=== PATIENT | female | born 1980 | race Hispanic/Latino ===

== ENCOUNTER 2020-02-23 14:43 | Emergency (ER) | payer SELFPAY ==
[2020-02-23] MEDS ORDERED: ALBUTEROL INHALER 90MCG/INH IH ONE (15:18)
[2020-02-23] MEDS ORDERED: ACETAMINOPHEN-CODEINE 300/30MG TAB ONE (15:19)
[2020-02-23] MEDS ORDERED: ONDANSETRON ODT 4 MG TAB ONE (15:19)
[2020-02-23] MEDS ORDERED: CYCLOBENZAPRINE HCL 10 MG TABLET ONE (15:22)
== END 2020-02-23 16:15 | disposition home or self-care (01) ==
LOC: EDH 14:43
DX: U07.1 COVID-19 (principal); I10 Essential (primary) hypertension; Z87.891 Personal history of nicotine dependence
CPT/HCPCS: 71045; 87426; 93005

== ENCOUNTER 2020-03-06 23:12 | Emergency (ER) | payer OTHER, SELFPAY ==
[2020-03-06 23:56] LABS: BASOPHILS % (AUTO) 0.2 % (0.0-5.0); EOSINOPHILS % (AUTO) 0.5 % (0.0-8.0); HEMATOCRIT 41.5 % (36-48); LYMPHOCYTES % (AUTO) 19.3 % (21.0-51.0); MEAN CORPUSCULAR HEMOGLOBIN 28.3 pg (27.0-33.0); MEAN CORPUSCULAR HGB CONC 32.8 g/dL (32.0-36.0); MEAN CORPUSCULAR VOLUME 86.3 fL (79-99); NEUTROPHILS % (AUTO) 73.7 % (40.0-77.0); PLATELET COUNT (AUTO) 403 K/uL (130-400); RED BLOOD CELL COUNT(AUTO) 4.81 MIL/uL (4.00-5.50); RED CELL DISTRIBUTION WIDTH 13.5 % (11.0-15.5); WHITE BLOOD COUNT (AUTO) 9.5 K/uL (4.8-10.8)
[2020-03-07 00:08] LABS: POTASSIUM 4.1 mmol/L (3.5-5.1)
[2020-03-07 00:14] LABS: ALBUMIN 3.2 g/dL (3.5-5.0); BILIRUBIN,TOTAL 0.5 mg/dL (0.2-1.0); TOTAL PROTEIN, SERUM 8.6 g/dL (6.0-8.3)
[2020-03-07 00:18] LABS: APPEARANCE,URINE Clear (CLEAR); BILIRUBIN,URINE Negative (NEGATIVE); COLOR,URINE Yellow (YELLOW); GLUCOSE, URINE (UA) Negative (NEGATIVE); KETONES,URINE Trace mg/dL (NEGATIVE); LEUKOCYTE ESTERASE ,URINE Small (NEGATIVE); NITRATE,URINE Positive (NEGATIVE); OCCULT BLOOD,URINE Negative (NEGATIVE); PH,URINE 5.5 (5.0-8.0); PROTEIN,URINE POS 1+ mg/dL (NEGATIVE)
[2020-03-07 00:44] LABS: RBC,URINE None Seen /HPF (0-1)
[2020-03-07 00:45] LABS: BACTERIA,URINE Moderate /HPF (None Seen); SQUAMOUS EPITHELIAL CELL,UR Few /HPF (0-2)
[2020-03-07] MEDS ORDERED: SODIUM CHLORIDE 0.9% 1000ML 1,000 ML IV ONE (01:08)
[2020-03-07] MEDS ORDERED: LORAZEPAM 1 MG TABLET ONE (01:09)
[2020-03-07] MEDS ORDERED: DIPHENHYDRAMINE HCL 25 MG CAPSULE ONE (01:55)
== END 2020-03-07 02:08 | disposition home or self-care (01) ==
LOC: EDH 23:12
DX: U07.1 COVID-19 (principal); G47.01 Insomnia due to medical condition; R20.2 Paresthesia of skin; R53.1 Weakness; I10 Essential (primary) hypertension
CPT/HCPCS: 36415; 71045; 80053; 81001; 82550; 83605; 84484; 85025; 87077; 87088; 87186; 87426; 93005; 96360; 99285; J7030; Q0163; U0003